=== PATIENT | male | born 1950 | race Caucasian/White ===

== ENCOUNTER 2021-11-09 05:37 | Outpatient (CLI) | payer MEDICARE ==
[~2021-11-09] VITALS: Ht 180.3 cm; Wt 96.3 kg
[2021-11-11] MEDS ORDERED: LISI1TAB44 PO (15:15)
[2021-11-11] MEDS ORDERED: MULT-593 PO (15:15)
== END 2021-11-14 14:42 | disposition home or self-care (01) ==
LOC: PREOP 05:37
PROVIDERS: ATTEND Surgery
DX: Z01.818 Encounter for other preprocedural examination (principal)

== ENCOUNTER 2021-11-16 10:21 | Day surgery (SDC) | payer MEDICARE ==
[~2021-11-16] VITALS: Ht 180.3 cm; Wt 96.3 kg
[~2021-11-16 10:21] MED LIST: LISI1TAB44 PO; MULT-593 PO
[2021-11-16] MEDS ORDERED: LACTATED RINGERS 1,000 ML IV STA (10:25)
[2021-11-16] MEDS ORDERED: LACTATED RINGERS 1,000 ML IV ONE (10:26)
[2021-11-16] MEDS ORDERED: LIDOCAINE JELLY 2% 6 ML SYRINGE MM PRN (10:30)
--- NOTE | 2021-11-16 10:32 | Progress Note-Pre Operative ---
Pre-Operative Progress Note H&P Reviewed The H&P was reviewed, patient examined and no changes noted. Date Seen by Provider: Nov 16, 2021 Time Seen by Provider: 10:30 Date H&P Reviewed: Nov 16, 2021 Time H&P Reviewed: 10:30 Pre-Operative Diagnosis: screening/family hx YODIT RAMOS MD Nov 16, 2021 10:32
--- NOTE | 2021-11-16 10:33 | Discharge Inst-Surgical ---
D/C Lap Instructions-RICHARD Follow Up Activity as tolerated High Fiber Diet 25g or more per day Avoid Alcohol, Caffeine, Spicy [place] and Acid foods. Drink 64 fluid oz or more of fluids per day. Symptoms to Report: Fever over 101 degree F, Nausea/Vomiting If any problems/questions: Contact your physician or go to Emergency Room YODIT RAMOS MD Nov 16, 2021 10:33
[2021-11-16 10:39] VITALS: BP 146/82
[2021-11-16] MEDS ORDERED: ONDANSETRON 4 MG (ZOFRAN) ORAL DISSOLVE TAB PO PRN (10:45)
[2021-11-16] MEDS ORDERED: ONDANSETRON 4 MG/2 ML (SDV) Z0FRAN IVP PRN (10:45)
[2021-11-16] MEDS ORDERED: PROPOFOL INJECTION 0 ML IV ONE (11:11)
[2021-11-16] MEDS ORDERED: PROPOFOL INJECTION 50 ML IV ONE (11:39)
[2021-11-16 11:55] VITALS: BP 121/68
--- NOTE | 2021-11-16 11:59 | Progress Note-Post Operative ---
Post-Operative Progess Note Surgeon (s)/Senior Environmental Practice Leader (s) Surgeon YODIT RAMOS MD Senior Environmental Practice Leader: none Pre-Operative Diagnosis screening/family hx Post-Operative Diagnosis mild chronic stage 1 ext and int hemorrhoids. Procedure & Operative Findings Date of Procedure 11/16/21 Procedure Performed/Findings colonoscopy Anesthesia Type mac Estimated Blood Loss Estimated blood loss (mL): minimal Specimens/Packing Specimens Removed none YODIT RAMOS MD Nov 16, 2021 11:59
[2021-11-16 12:00] VITALS: BP 114/67
[2021-11-16 12:05] VITALS: BP 110/80
[2021-11-16 12:38] VITALS: BP 146/82
--- NOTE | 2021-11-16 13:05 | Anesthesia-General Post-Op ---
General Patient Condition Mental Status/LOC: Same as Preop Cardiovascular: Satisfactory Nausea/Vomiting: Absent Respiratory: Satisfactory Pain: Controlled Complications: Absent Post Op Complications Complications None Follow Up Care/Instructions Patient Instructions None needed. Anesthesia/Patient Condition Patient Condition Patient is doing well, no complaints, stable vital signs, no apparent adverse anesthesia problems. No complications reported per nursing. MAGDALENO CHASE CRNA Nov 16, 2021 13:05
--- NOTE | 2021-11-16 15:49 | OPERATIVE REPORT ---
DATE OF SERVICE: 11/16/2021 PREOPERATIVE DIAGNOSIS: Screening colonoscopy with family history of colon cancer. POSTOPERATIVE DIAGNOSES: Mild stage I external and internal hemorrhoids. Remainder of the colon and rectum were normal. PROCEDURE: Colonoscopy. SURGEON: Yodit Ramos MD. ANESTHESIA: Monitored anesthesia care. ESTIMATED BLOOD LOSS: Minimal. FINDINGS: Same as postoperative diagnoses. DISPOSITION: The patient tolerated the procedure well. INDICATIONS: The patient is a 71-year-old male referred over to us for screening colonoscopy. His last colonoscopy was approximately 20 years ago and he believes this to be normal. He does have a first-degree family history of colon cancer with his father being diagnosed with the disease at age 65 years. He does not report any major issues with diarrhea nor constipation as well as no red blood per rectum nor any dark tarry stools. DESCRIPTION OF PROCEDURE: The patient was brought to endoscopy suite, laid in left lateral decubitus position. After adequate IV pain and sedative medications and monitored anesthesia care, digital rectal examination was performed. Mild chronic stage I external and internal hemorrhoids were identified, which were not actively edematous nor inflamed and no bleeding. Normal sphincter tone was felt and there were no palpable masses. Prostate gland was palpable and appeared normal. The endoscope was then intubated and anus and rectum gently insufflated. The endoscope was then advanced through the valves of [place] of the rectum with no polyps or any neoplasms identified. Through the sigmoid colon, no diverticulosis identified. The endoscope was advanced to the remainder of the descending, transverse and ascending colon to the cecum, which appeared normal with no polyps or any neoplasms identified. The endoscope was then slowly withdrawn while taking a second look and suctioning of residual air with no additional findings. The patient tolerated the procedure well. We will recommend a high fiber diet with at least 30 grams of fiber daily as well as significant amounts of water to promote soft stools on a daily basis. Because of his first-degree family history of colon cancer, we will still recommend followup colonoscopy approximately every 5 years. Job ID: [id number] DocumentID: [id number] Dictated Date: 11/16/2021 11:54:04 Supply Chain Business Analyst Date: 11/16/2021 15:49:17 Dictated By: YODIT RAMOS MD
== END 2021-11-16 12:30 | disposition home or self-care (01) ==
LOC: ENDO 10:21
PROVIDERS: ATTEND Surgery
DX: Z12.11 Encounter for screening for malignant neoplasm of colon (principal); K64.0 First degree hemorrhoids; K64.4 Residual hemorrhoidal skin tags; I10 Essential (primary) hypertension; Z80.0 Family history of malignant neoplasm of digestive organs; Z79.899 Other long term (current) drug therapy; Z87.891 Personal history of nicotine dependence